=== PATIENT | female | born 1995 | race American Indian/Alaskan Native ===

== ENCOUNTER 2017-07-31 13:41 | Emergency (ER) | payer MEDICAID, OTHER ==
[2017-07-31 13:50] VITALS: BP 144/92
--- NOTE | 2017-07-31 14:00 | EDM.PDOC ---
ED HPI GENERAL MEDICAL PROBLEM - General Chief Complaint: Lower Extremity Injury/Pain Stated Complaint: twisted left ankle Time Seen by Provider: 07/31/17 13:55 Source of Information: Reports: Patient History Limitations: Reports: No Limitations - History of Present Illness INITIAL COMMENTS - FREE TEXT/NARRATIVE: Patient presents with left ankle pain. Twisted it while walking in her room at home. States was wearing her flip flops and rolled ankle when turning in her room. Fell down on her right knee. Relates that has sprained her ankle several times before. She denies any other injuries. Has not iced it or taken any medications for pain. 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: Polycystic Ovaries Psychiatric History: Reports: Anxiety, Depression - Infectious Disease History Infectious Disease History: Reports: Chicken Pox - Past Surgical History Female Surgical History: Reports: Other (See Below) Social & Family History - Tobacco Use Smoking Status *Q: Never Smoker Second Hand Smoke Exposure: No - Alcohol Use Days Per Week of Alcohol Use: 0 - Recreational Drug Use Recreational Drug Use: No - Living Situation & Occupation Living situation: Reports: with Family Review of Systems - Review of Systems Review Of Systems: ROS reveals no pertinent complaints other than HPI. ED EXAM, GENERAL - Physical Exam Exam: See Below Exam Limited By: No Limitations General Appearance: Alert, WD/WN, No Apparent Distress Extremities: Normal Inspection, Joint Swelling (mild lateral malleolar swelling. Tender with exam. Pain with flexion, extension and rotation of ankle. No obvious deformity), Limited Range of Motion Course - Vital Signs Last Recorded V/S: Last Vital Signs Temp 98.5 F 07/31/17 13:44 Pulse 85 07/31/17 13:44 Resp 20 07/31/17 13:44 BP 144/92 H 07/31/17 13:44 Pulse Ox 97 07/31/17 13:44 - Orders/Labs/Meds Orders: Active Orders 24 hr Category Date Time Status Ankle Min 3V Lt [CR] Stat Exams 07/31/17 13:57 Ordered - Re-Assessments/Exams Free Text/Narrative Re-Assessment/Exam: 07/31/17 14:18 Xrays negative. Ankle wrapped with [place] bandage Departure - Departure Time of Disposition: 14:18 Disposition: Home, Self-Care 01 Condition: Good Clinical Impression: Sprain of ankle - Discharge Information Forms: ED Department Discharge Additional Instructions: 1. Ice 2. Elevate 3. Rest 4. [place] bandage to help with swelling 5. Ibuprofen every 6 hours for pain and swelling 6. Follow up if any ongoing concerns. - My Orders Last 24 Hours: My Active Orders 07/31/17 13:57 Ankle Min 3V Lt [CR] Stat - Assessment/Plan Last 24 Hours: My Active Orders 07/31/17 13:57 Ankle Min 3V Lt [CR] Stat
== END 2017-07-31 14:22 | disposition home or self-care (01) ==
LOC: CC.ED 13:41
DX: S93.402A Sprain of unspecified ligament of left ankle, initial encounter (principal); F41.9 Anxiety disorder, unspecified; F32.9 Major depressive disorder, single episode, unspecified; X50.1XXA Overexertion from prolonged static or awkward postures, initial encounter; Y93.01 Activity, walking, marching and hiking; Y92.009 Unspecified place in unspecified non-institutional (private) residence as the place of occurrence of the external cause
CPT/HCPCS: 73610-LT; 99283

== ENCOUNTER 2018-05-09 14:36 | Emergency (ER) | payer MEDICAID, OTHER | END 2018-05-09 14:50 | disposition home or self-care (01) | LOC: SUPCPDRO 14:36 → CC.ED 14:36 | DX: Z53.21 Procedure and treatment not carried out due to patient leaving prior to being seen by health care provider (principal) ==

== ENCOUNTER 2019-08-09 20:57 | Emergency (ER) | payer OTHER ==
[2019-08-09] MEDS ORDERED: Azithromycin 250 MG Tab PO ONE (20:58)
[2019-08-09 20:59] VITALS: BP 140/73; PULSE 87
[2019-08-09] MEDS ORDERED: Take Home: Azithromycin 250 MG, 2 Tab Pack PO ONE (21:16)
--- NOTE | 2019-08-09 21:18 | EDM.PDOC ---
ED HPI GENERAL MEDICAL PROBLEM - General Chief Complaint: General Stated Complaint: cough Time Seen by Provider: 08/09/19 21:10 Source of Information: Reports: Patient History Limitations: Reports: No Limitations - History of Present Illness INITIAL COMMENTS - FREE TEXT/NARRATIVE: States that she has had a cough for several days. No sore throat except from coughing especially at night. Has had some fevers at home on and off. 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 Other AIR COMPRESSOR ENGINEER History: removal and drainge of cysts on ovaries Musculoskeletal History: Reports: None Neurological History: Reports: None Psychiatric History: Reports: Anxiety, Depression Endocrine/Metabolic History: Reports: Obesity/BMI 30+ Hematologic History: Reports: None Immunologic History: Reports: None Oncologic (Cancer) History: Reports: None Dermatologic History: Reports: Other (See Below) Other Dermatologic History: shingles - Infectious Disease History Infectious Disease History: Reports: Chicken Pox - Past Surgical History Head Surgeries/Procedures: Reports: None HEENT Surgical History: Reports: None Cardiovascular Surgical History: Reports: None GI Surgical History: Reports: Cholecystectomy Female Surgical History: Reports: Other (See Below) Other Female Surgeries/Procedures: surgery for ovarian cysts Neurological Surgical History: Reports: None Musculoskeletal Surgical History: Reports: None Social & Family History - Family History Family Medical History: Noncontributory - Tobacco Use Smoking Status *Q: Never Smoker - Caffeine Use Caffeine Use: Reports: Coffee, Soda - Recreational Drug Use Recreational Drug Use: No - Living Situation & Occupation Living situation: Reports: with Family ED ROS GENERAL - Review of Systems Review Of Systems: See Below Constitutional: Reports: Fever. Denies: Chills HEENT: Reports: Rhinitis, Sinus Problem Respiratory: Reports: Cough. Denies: Shortness of Breath Cardiovascular: Reports: No Symptoms GI/Abdominal: Reports: No Symptoms ED EXAM, GENERAL - Physical Exam Exam: See Below Exam Limited By: No Limitations General Appearance: Alert, WD/WN, No Apparent Distress Ears: Normal External Exam, Normal Canal, Normal TMs Nose: Normal Inspection Throat/Mouth: Normal Inspection, Normal Oropharynx Head: Atraumatic, Normocephalic Neck: Normal Inspection, Supple, Non-Tender Respiratory/Chest: No Respiratory Distress, Lungs Clear, Normal Breath Sounds Cardiovascular: Regular Rate, Rhythm Neurological: Alert, Oriented Skin Exam: Warm, Dry, Intact Course - Vital Signs Last Recorded V/S: Last Vital Signs Temp 99.6 F 08/09/19 20:57 Pulse 87 08/09/19 20:57 Resp 16 08/09/19 20:57 BP 140/73 08/09/19 20:57 Pulse Ox 97 08/09/19 20:57 - Orders/Labs/Meds Meds: Medications Discontinued Medications Generic Name Dose Route Start Last Admin Trade Name Freq PRN Reason Stop Dose Admin Azithromycin 1 packet 08/09/19 21:16 Take Home: Azithromycin 250 Mg, 2 Tab Pack PO 08/09/19 21:17 ONETIME ONE Departure - Departure Time of Disposition: 21:13 Disposition: Home, Self-Care 01 Condition: Good Clinical Impression: Sinusitis - Discharge Information *PRESCRIPTION DRUG MONITORING PROGRAM REVIEWED*: Not Applicable *COPY OF PRESCRIPTION DRUG MONITORING REPORT IN PATIENT HAIR: Not Applicable Instructions: Sinusitis, Adult, [id number] Referrals: PCP,None [Primary Care Provider] - Forms: ED Department Discharge Additional Instructions: push fluids as much as possible tylenol or advil as needed for discomfort decongestants of choice recheck in the clinic if not improved. - Problem List & Annotations (1) Sinusitis SNOMED Code(s): 86849144 Code(s): J32.9 - CHRONIC SINUSITIS, UNSPECIFIED Status: Acute Current Visit: No Qualifiers: Sinusitis location: maxillary Chronicity: acute Recurrence: non- recurrent Qualified Code(s): J01.00 - Acute maxillary sinusitis, unspecified - Problem List Review Problem List Initiated/Reviewed/Updated: Yes
== END 2019-08-09 21:25 | disposition home or self-care (01) ==
LOC: CC.ED 20:57
DX: J32.9 Chronic sinusitis, unspecified (principal); F41.9 Anxiety disorder, unspecified; F32.9 Major depressive disorder, single episode, unspecified; Z79.899 Other long term (current) drug therapy
CPT/HCPCS: 99283; A9270-GY